=== PATIENT | female | born 1955 | race Caucasian/White ===

== ENCOUNTER → 2017-02-27 | Outpatient (CLI) | payer OTHER | END | disposition home or self-care (01) | LOC: CFH 14:33 | PROVIDERS: ATTEND Family Medicine | DX: Z12.31 Encounter for screening mammogram for malignant neoplasm of breast (principal); N63 Unspecified lump in breast; Z85.3 Personal history of malignant neoplasm of breast; Z98.890 Other specified postprocedural states | CPT/HCPCS: G0202 ==

== ENCOUNTER → 2018-07-24 | Outpatient (CLI) | payer OTHER | END | disposition home or self-care (01) | LOC: CFH 10:03 | PROVIDERS: ATTEND Family Medicine | DX: Z12.31 Encounter for screening mammogram for malignant neoplasm of breast (principal) | CPT/HCPCS: 77063; 77067 ==

== ENCOUNTER 2019-08-21 09:34 | Outpatient (CLI) | payer OTHER | END 2019-08-21 23:59 | disposition home or self-care (01) | LOC: CFH 09:34 | PROVIDERS: ATTEND Family Medicine | DX: Z12.31 Encounter for screening mammogram for malignant neoplasm of breast (principal); N63.31 Unspecified lump in axillary tail of the right breast | CPT/HCPCS: 77063; 77067 ==

== ENCOUNTER 2019-09-15 07:17 | Outpatient (CLI) | payer OTHER | END 2019-09-15 23:59 | disposition home or self-care (01) | LOC: CFH 07:17 | PROVIDERS: ATTEND Family Medicine | DX: N63.10 Unspecified lump in the right breast, unspecified quadrant (principal) | CPT/HCPCS: 76642; 77065; G0279 ==

== ENCOUNTER 2019-09-19 06:59 | Outpatient (CLI) | payer OTHER ==
[2019-09-19] MEDS ORDERED: LIDOCAINE 1%-EPI 1:100K, 30ML ONE (08:18)
[2019-09-19] MEDS ORDERED: LIDOCAINE 1%, 20ML ONE (08:18)
[2019-09-19] MEDS ORDERED: SODIUM BICARB 4.2%, 10ML SYRINGE ONE (08:18)
== END 2019-09-19 23:59 | disposition home or self-care (01) ==
LOC: CFH 06:59
PROVIDERS: ATTEND Family Medicine
DX: N63.10 Unspecified lump in the right breast, unspecified quadrant (principal); C77.3 Secondary and unspecified malignant neoplasm of axilla and upper limb lymph nodes; Z85.3 Personal history of malignant neoplasm of breast
CPT/HCPCS: 38505; 76942; 77065; 88305; 88341; 88342; 88360; J3490

== ENCOUNTER → 2019-11-04 | Outpatient (CLI) | payer OTHER ==
[~2019-11-04] MED LIST: NONE PER PT
[2019-11-04 14:04] LABS: BASOPHILS # (AUTO) 0.02 x10^3/uL (0-0.1); BASOPHILS % (AUTO) 0 % (0-1); EOSINOPHILS # (AUTO) 0.12 x10^3/uL (0-0.4); EOSINOPHILS % (AUTO) 2 % (1-7); LYMPHOCYTES # (AUTO) 1.47 x10^3/uL (1-3.4); LYMPHOCYTES % (AUTO) 29 % (22-44); MD NO; MEAN CORPUSCULAR HEMOGLOBIN 30.9 pg (27.0-34.8); MEAN CORPUSCULAR HGB CONC 33.2 g/dL (32.4-35.8); MEAN CORPUSCULAR VOLUME 93.1 fL (80-100); MEAN PLATELET VOLUME 8.4 fL (7.4-10.4); MONOCYTES # (AUTO) 0.41 x10^3/uL (0.2-0.8); MONOCYTES % (AUTO) 8 % (2-9); NEUTROPHILS # (AUTO) 3.04 x10^3/uL (1.8-6.8); NEUTROPHILS % (AUTO) 60 % (42-75); PLATELET COUNT 220 x10^3/uL (130-400); RED BLOOD COUNT 4.22 x10^6/uL (3.82-5.3); RED CELL DISTRIBUTION WIDTH 13.7 % (9.6-15.2)
== END | disposition home or self-care (01) ==
LOC: STAR 13:15
PROVIDERS: ATTEND Surgery
DX: Z01.818 Encounter for other preprocedural examination (principal); D05.11 Intraductal carcinoma in situ of right breast; C50.411 Malignant neoplasm of upper-outer quadrant of right female breast; C50.412 Malignant neoplasm of upper-outer quadrant of left female breast; Z85.828 Personal history of other malignant neoplasm of skin
CPT/HCPCS: 36415; 85025; 93005

== ENCOUNTER 2019-11-12 05:41 | Inpatient (IN) | payer OTHER ==
[2019-11-04 13:36] VITALS: BP 131/81
[~2019-11-12] VITALS: Ht 172.7 cm; Wt 68.8 kg
[2019-11-12] MEDS ORDERED: LACTATED RINGERS 1,000 ML IV SCH (06:37)
[2019-11-12] MEDS ORDERED: BUPIVACAINE/PF 0.5% ONE (06:40)
[2019-11-12] MEDS ORDERED: BACITRACIN 50,000 UNIT ONE (06:41)
[2019-11-12] MEDS ORDERED: CEFAZOLIN 1,000 MG ONE ×2 (06:41→13:49)
[2019-11-12] MEDS ORDERED: BUPIVACAINE/PF 0.25% ONE (06:41)
[2019-11-12] MEDS ORDERED: EPINEPHRINE 1 MG/ML, 1ML ONE (06:41)
[2019-11-12] MEDS ORDERED: GENTAMICIN 80 MG/2 ML ONE (06:41)
[2019-11-12] MEDS ORDERED: ISOSULFAN BLUE 10 MG/ML, 5ML IV ONE (06:41)
[2019-11-12] MEDS ORDERED: ROPIvacaine/PF 0.5%, 30 ML ONE (06:41)
[2019-11-12] MEDS ORDERED: ACETAMINOPHEN 500 MG TABLET ONE (07:10)
[2019-11-12] MEDS ORDERED: GABAPENTIN 300 MG CAPSULE ONE (07:11)
[2019-11-12] MEDS ORDERED: MIDAZOLAM 1 MG/ML, 2ML ONE (07:37)
[2019-11-12] MEDS ORDERED: FENTANYL PF 250 MCG/5ML ONE (07:38)
[2019-11-12] MEDS ORDERED: ONDANSETRON 2MG/ML, 2ML ONE ×2 (07:41→13:49)
[2019-11-12] MEDS ORDERED: hydrALAzine 20 MG/ML, 1ML IV PRN ×2 (08:30→16:30)
[2019-11-12] MEDS ORDERED: PROMETHAZINE 25 MG/ML, 1ML IV PRN (08:30)
[2019-11-12] MEDS ORDERED: HYDROmorphone 1 MG/ML, 1ML INJ IVPush PRN (08:30)
[2019-11-12] MEDS ORDERED: LABETALOL 5MG/ML, 20ML IV PRN (08:30)
[2019-11-12] MEDS ORDERED: KETOROLAC 30 MG/1 ML IV PRN (08:30)
[2019-11-12] MEDS ORDERED: ACETAMINOPHEN 325 MG TABLET PO PRN ×2 (08:30→16:30)
[2019-11-12] MEDS ORDERED: ALBUTEROL SULFATE 2.5 MG/3 ML NPPB PRN (08:30)
[2019-11-12] MEDS ORDERED: DIAZEPAM 5 MG/ML, 2ML IVPush PRN (08:30)
[2019-11-12] MEDS ORDERED: FENTANYL PF 100 MCG/2ML IV PRN (08:30)
[2019-11-12] MEDS ORDERED: OXYcodone 5 MG/5 ML ORAL.SOL UDC PO PRN (08:30)
[2019-11-12] MEDS ORDERED: MEPERIDINE/PF 25MG/0.5ML IVPush PRN (08:30)
[2019-11-12] MEDS ORDERED: NEOSTIGMINE 1 MG/ML, 10ML ONE (13:49)
[2019-11-12] MEDS ORDERED: GLYCOPYRROLATE 0.2MG/1ML, 5ML ONE (13:49)
[2019-11-12] MEDS ORDERED: SUCCINYLCHOLINE 20 MG/ML, 10ML ONE (13:49)
[2019-11-12] MEDS ORDERED: DEXAMETHASONE 4 MG/ML, 1ML ONE (13:49)
[2019-11-12] MEDS ORDERED: ROCURONIUM 10MG/ML,5ML ONE ×2 (13:49)
[2019-11-12] MEDS ORDERED: SUGAMMADEX 200 MG/2 ML IVPush ONE (13:49)
[2019-11-12] MEDS ORDERED: PROPOFOL 10 MG/ML, 20ML ONE (13:49)
[2019-11-12] MEDS ORDERED: FENTANYL PF 100 MCG/2ML ONE (14:53)
[2019-11-12] MEDS ORDERED: ACETAMINOPHEN 325 MG TABLET ONE (14:53)
[2019-11-12] MEDS ORDERED: ACETAMINOPHEN 650 MG/20.3 ML UDC ONE (14:53)
[2019-11-12] MEDS ORDERED: OXYcodone 5 MG/5 ML ORAL.SOL UDC ONE (14:53)
[2019-11-12] MEDS ORDERED: HYDROmorphone 2 MG/ML, 1ML IVPush PRN (16:30)
[2019-11-12] MEDS ORDERED: LACTATED RINGERS 500 ML IV PRN (16:30)
[2019-11-12] MEDS ORDERED: ONDANSETRON 2MG/ML, 2ML IV PRN (16:30)
[2019-11-12] MEDS ORDERED: SODIUM CHLORIDE 0.9%, 500ML IV PRN (16:30)
[2019-11-12] MEDS ORDERED: LORazepam 1MG TABLET PO PRN (16:30)
[2019-11-12] MEDS ORDERED: DIPHENHYDRAMINE 50 MG/ML, 1ML IV PRN (16:30)
[2019-11-12] MEDS ORDERED: D5%-LACTATED RINGERS 1,000 ML IV SCH (16:30)
[2019-11-12] MEDS ORDERED: DIPHENHYDRAMINE 25 MG CAPSULE PO PRN (16:30)
[2019-11-12] MEDS ORDERED: LORazepam 2 MG/ML, 1ML IV PRN (16:30)
[2019-11-12] MEDS ORDERED: ACETAMINOPHEN 650 MG SUPP PR PRN (16:30)
[2019-11-12] MEDS: CEFAZOLIN PMX 2GM/50ML 50 ML IVPB SCH (18:36)
[2019-11-12 19:50] VITALS: BP 109/64
[2019-11-12 23:43] VITALS: BP 100/61
[2019-11-13] MEDS: CEFAZOLIN PMX 2GM/50ML 50 ML IVPB SCH (02:10)
[2019-11-13 03:28] VITALS: BP 106/67
[2019-11-13 07:50] VITALS: BP 92/55
[2019-11-13 09:17] VITALS: BP 99/62
[2019-11-13] MEDS ORDERED: HEPARIN 5,000 UNITS/ML, 1ML SQ SCH (11:30)
== END 2019-11-13 11:11 | disposition home or self-care (01) | DRG 581 ==
LOC: ORIP 05:41 → EDSTATUS 07:30 → 4NE 16:00 → DCLOUNGE 11-13 10:50
PROVIDERS: ADMIT Surgery; ATTEND Surgery
PROC: 0KXF0Z5 Transfer Right Trunk Muscle, Latissimus Dorsi Myocutaneous Flap, Open Approach (ICD-10-PCS; 2019-11-12)
PROC: 0KXG0Z5 Transfer Left Trunk Muscle, Latissimus Dorsi Myocutaneous Flap, Open Approach (ICD-10-PCS; 2019-11-12)
PROC: 0HHT0NZ Insertion of Tissue Expander into Right Breast, Open Approach (ICD-10-PCS; 2019-11-12)
PROC: 07B50ZZ Excision of Right Axillary Lymphatic, Open Approach (ICD-10-PCS; principal; 2019-11-12 07:30)
PROC: 0HTV0ZZ Resection of Bilateral Breast, Open Approach (ICD-10-PCS; 2019-11-12 07:30)
DX: C50.911 Malignant neoplasm of unspecified site of right female breast (principal); C50.912 Malignant neoplasm of unspecified site of left female breast; Z92.3 Personal history of irradiation; Z92.21 Personal history of antineoplastic chemotherapy; Z17.0 Estrogen receptor positive status [ER+]
CPT/HCPCS: J7121; S0020; 88305; 88307; C1729; G0378; J0171; J0690; J1100; J2250; J2405; J2704; J2710; J2795; J3010; J3490; C1789; J0330; J1580; J7120

== ENCOUNTER 2019-11-27 13:53 | Day surgery (SDC) | payer OTHER ==
[~2019-11-27] VITALS: Ht 172.7 cm; Wt 66.9 kg
[2019-11-27] MEDS ORDERED: LACTATED RINGERS 1,000 ML IV SCH (14:13)
[2019-11-27 14:19] VITALS: BP 115/73
[2019-11-27] MEDS ORDERED: SULF1TAB24 PO (14:26)
[2019-11-27] MEDS ORDERED: MIDAZOLAM 1 MG/ML, 2ML ONE (16:01)
[2019-11-27] MEDS ORDERED: FENTANYL PF 250 MCG/5ML ONE (16:01)
[2019-11-27] MEDS ORDERED: DEXAMETHASONE 4 MG/ML, 1ML ONE ×2 (16:02→16:34)
[2019-11-27] MEDS ORDERED: PROPOFOL 10 MG/ML, 20ML ONE (16:02)
[2019-11-27] MEDS ORDERED: ROCURONIUM 10MG/ML,5ML ONE (16:03)
[2019-11-27] MEDS ORDERED: CEFAZOLIN 1,000 MG ONE ×2 (16:30→16:34)
[2019-11-27] MEDS ORDERED: GENTAMICIN 80 MG/2 ML ONE (16:30)
[2019-11-27] MEDS ORDERED: BACITRACIN 50,000 UNIT ONE (16:30)
[2019-11-27] MEDS ORDERED: EPINEPHRINE 1 MG/ML, 1ML ONE (16:34)
== END 2019-11-27 18:50 | disposition home or self-care (01) ==
LOC: OR 13:53
PROVIDERS: ATTEND Plastic Surgery
DX: L76.82 Other postprocedural complications of skin and subcutaneous tissue (principal); E03.9 Hypothyroidism, unspecified; Z85.3 Personal history of malignant neoplasm of breast; Z90.13 Acquired absence of bilateral breasts and nipples; Z92.3 Personal history of irradiation; Z85.828 Personal history of other malignant neoplasm of skin; Z98.890 Other specified postprocedural states
CPT/HCPCS: 14001; 14301; J0171; J0690; J1100; J1580; J2250; J2704; J3010; J7120

== ENCOUNTER → 2019-12-01 | Outpatient (CLI) | payer OTHER ==
[~2019-12-01] MED LIST changes: +SULF1TAB24 PO
== END | disposition home or self-care (01) ==
LOC: WOUND 12:52
PROVIDERS: ATTEND Internal Medicine
DX: T81.89XA Other complications of procedures, not elsewhere classified, initial encounter (principal); L59.8 Other specified disorders of the skin and subcutaneous tissue related to radiation; Z85.3 Personal history of malignant neoplasm of breast; Z85.828 Personal history of other malignant neoplasm of skin; Y83.8 Other surgical procedures as the cause of abnormal reaction of the patient, or of later complication, without mention of misadventure at the time of the procedure; Y84.2 Radiological procedure and radiotherapy as the cause of abnormal reaction of the patient, or of later complication, without mention of misadventure at the time of the procedure; Y92.89 Other specified places as the place of occurrence of the external cause
CPT/HCPCS: 11042; 97605; 99215

== ENCOUNTER → 2019-12-01 | Outpatient (CLI) | payer OTHER | END | disposition home or self-care (01) | LOC: CFH 14:35 | PROVIDERS: ATTEND Internal Medicine | DX: T81.32XA Disruption of internal operation (surgical) wound, not elsewhere classified, initial encounter (principal); X58.XXXA Exposure to other specified factors, initial encounter; Y93.89 Activity, other specified; Y92.89 Other specified places as the place of occurrence of the external cause; Y99.8 Other external cause status | CPT/HCPCS: 71046 ==

== ENCOUNTER → 2019-12-03 | Outpatient (CLI) | payer OTHER | END | disposition home or self-care (01) | LOC: WOUND 10:56 | PROVIDERS: ATTEND Internal Medicine | DX: T81.89XD Other complications of procedures, not elsewhere classified, subsequent encounter (principal); L59.8 Other specified disorders of the skin and subcutaneous tissue related to radiation; S21.109A Unspecified open wound of unspecified front wall of thorax without penetration into thoracic cavity, initial encounter; E03.9 Hypothyroidism, unspecified; Z85.3 Personal history of malignant neoplasm of breast; Z85.828 Personal history of other malignant neoplasm of skin; Z90.13 Acquired absence of bilateral breasts and nipples; Z98.890 Other specified postprocedural states; Z92.3 Personal history of irradiation; Z92.21 Personal history of antineoplastic chemotherapy; X58.XXXA Exposure to other specified factors, initial encounter; Y93.89 Activity, other specified; Y92.89 Other specified places as the place of occurrence of the external cause; Y99.8 Other external cause status; Y83.8 Other surgical procedures as the cause of abnormal reaction of the patient, or of later complication, without mention of misadventure at the time of the procedure | CPT/HCPCS: 97605 ==

== ENCOUNTER → 2019-12-05 | Outpatient (CLI) | payer OTHER | END | disposition home or self-care (01) | LOC: WOUND 11:01 | PROVIDERS: ATTEND Family Medicine | DX: T81.89XD Other complications of procedures, not elsewhere classified, subsequent encounter (principal); L59.8 Other specified disorders of the skin and subcutaneous tissue related to radiation; S21.109D Unspecified open wound of unspecified front wall of thorax without penetration into thoracic cavity, subsequent encounter; E03.9 Hypothyroidism, unspecified; Z98.890 Other specified postprocedural states; Z92.21 Personal history of antineoplastic chemotherapy; Z92.3 Personal history of irradiation; Z85.3 Personal history of malignant neoplasm of breast; Z90.13 Acquired absence of bilateral breasts and nipples; Z85.828 Personal history of other malignant neoplasm of skin; X58.XXXD Exposure to other specified factors, subsequent encounter; Y83.8 Other surgical procedures as the cause of abnormal reaction of the patient, or of later complication, without mention of misadventure at the time of the procedure | CPT/HCPCS: 97605 ==

== ENCOUNTER → 2019-12-08 | Outpatient (CLI) | payer OTHER | END | disposition home or self-care (01) | LOC: WOUND 09:43 | PROVIDERS: ATTEND Internal Medicine | DX: T81.89XD Other complications of procedures, not elsewhere classified, subsequent encounter (principal); L59.8 Other specified disorders of the skin and subcutaneous tissue related to radiation; E03.9 Hypothyroidism, unspecified; Z90.13 Acquired absence of bilateral breasts and nipples; Z98.890 Other specified postprocedural states; Z92.21 Personal history of antineoplastic chemotherapy; Z92.3 Personal history of irradiation; Z85.3 Personal history of malignant neoplasm of breast; Z85.828 Personal history of other malignant neoplasm of skin; Y83.8 Other surgical procedures as the cause of abnormal reaction of the patient, or of later complication, without mention of misadventure at the time of the procedure | CPT/HCPCS: 11042; 97605 ==

== ENCOUNTER 2019-12-10 09:17 | Outpatient (CLI) | payer OTHER | END 2019-12-10 23:59 | disposition home or self-care (01) | LOC: WOUND 09:17 | PROVIDERS: ATTEND Internal Medicine | DX: T81.89XD Other complications of procedures, not elsewhere classified, subsequent encounter (principal); L59.8 Other specified disorders of the skin and subcutaneous tissue related to radiation; E03.9 Hypothyroidism, unspecified; Z90.13 Acquired absence of bilateral breasts and nipples; Z92.21 Personal history of antineoplastic chemotherapy; Z92.3 Personal history of irradiation; Z85.3 Personal history of malignant neoplasm of breast; Z85.828 Personal history of other malignant neoplasm of skin; Y83.8 Other surgical procedures as the cause of abnormal reaction of the patient, or of later complication, without mention of misadventure at the time of the procedure | CPT/HCPCS: 97605 ==

== ENCOUNTER 2019-12-12 09:15 | Outpatient (CLI) | payer OTHER | END 2019-12-12 23:59 | disposition home or self-care (01) | LOC: WOUND 09:15 | PROVIDERS: ATTEND Family Medicine | DX: Z02.9 Encounter for administrative examinations, unspecified (principal) ==

== ENCOUNTER 2019-12-15 09:00 | Outpatient (CLI) | payer OTHER | END 2019-12-15 23:59 | disposition home or self-care (01) | LOC: WOUND 09:00 | PROVIDERS: ATTEND Internal Medicine | DX: T81.89XD Other complications of procedures, not elsewhere classified, subsequent encounter (principal); L59.8 Other specified disorders of the skin and subcutaneous tissue related to radiation; E03.9 Hypothyroidism, unspecified; Z90.13 Acquired absence of bilateral breasts and nipples; Z92.21 Personal history of antineoplastic chemotherapy; Z92.3 Personal history of irradiation; Z85.3 Personal history of malignant neoplasm of breast; Z85.828 Personal history of other malignant neoplasm of skin; Y83.8 Other surgical procedures as the cause of abnormal reaction of the patient, or of later complication, without mention of misadventure at the time of the procedure; Y84.2 Radiological procedure and radiotherapy as the cause of abnormal reaction of the patient, or of later complication, without mention of misadventure at the time of the procedure | CPT/HCPCS: 97597 ==

== ENCOUNTER → 2019-12-17 | Outpatient (CLI) | payer OTHER | END | disposition home or self-care (01) | LOC: WOUND 09:26 | PROVIDERS: ATTEND Internal Medicine | DX: T81.89XD Other complications of procedures, not elsewhere classified, subsequent encounter (principal); L59.8 Other specified disorders of the skin and subcutaneous tissue related to radiation; E03.9 Hypothyroidism, unspecified; Z85.3 Personal history of malignant neoplasm of breast; Z92.21 Personal history of antineoplastic chemotherapy; Z92.3 Personal history of irradiation; Z90.13 Acquired absence of bilateral breasts and nipples; Z85.828 Personal history of other malignant neoplasm of skin; Z98.890 Other specified postprocedural states; Y83.8 Other surgical procedures as the cause of abnormal reaction of the patient, or of later complication, without mention of misadventure at the time of the procedure | CPT/HCPCS: 97605 ==

== ENCOUNTER → 2019-12-19 | Outpatient (CLI) | payer OTHER | END | disposition home or self-care (01) | LOC: WOUND 09:46 | PROVIDERS: ATTEND Family Medicine | DX: T81.89XD Other complications of procedures, not elsewhere classified, subsequent encounter (principal); L59.8 Other specified disorders of the skin and subcutaneous tissue related to radiation; E03.9 Hypothyroidism, unspecified; Z85.3 Personal history of malignant neoplasm of breast; Z92.21 Personal history of antineoplastic chemotherapy; Z92.3 Personal history of irradiation; Z90.13 Acquired absence of bilateral breasts and nipples; Z85.828 Personal history of other malignant neoplasm of skin; Z98.890 Other specified postprocedural states; Y83.8 Other surgical procedures as the cause of abnormal reaction of the patient, or of later complication, without mention of misadventure at the time of the procedure | CPT/HCPCS: 97605 ==

== ENCOUNTER → 2019-12-22 | Outpatient (CLI) | payer OTHER | END | disposition home or self-care (01) | LOC: WOUND 09:02 | PROVIDERS: ATTEND Surgery | DX: T81.89XD Other complications of procedures, not elsewhere classified, subsequent encounter (principal); L59.8 Other specified disorders of the skin and subcutaneous tissue related to radiation; E03.9 Hypothyroidism, unspecified; Z85.3 Personal history of malignant neoplasm of breast; Z92.21 Personal history of antineoplastic chemotherapy; Z92.3 Personal history of irradiation; Z90.13 Acquired absence of bilateral breasts and nipples; Z85.828 Personal history of other malignant neoplasm of skin; Z98.890 Other specified postprocedural states; Y83.8 Other surgical procedures as the cause of abnormal reaction of the patient, or of later complication, without mention of misadventure at the time of the procedure | CPT/HCPCS: 97605 ==

== ENCOUNTER → 2019-12-24 | Outpatient (CLI) | payer OTHER | END | disposition home or self-care (01) | LOC: WOUND 09:06 | PROVIDERS: ATTEND Internal Medicine | DX: T81.89XD Other complications of procedures, not elsewhere classified, subsequent encounter (principal); L59.8 Other specified disorders of the skin and subcutaneous tissue related to radiation; E03.9 Hypothyroidism, unspecified; Z85.3 Personal history of malignant neoplasm of breast; Z92.21 Personal history of antineoplastic chemotherapy; Z92.3 Personal history of irradiation; Z90.13 Acquired absence of bilateral breasts and nipples; Z85.828 Personal history of other malignant neoplasm of skin; Z98.890 Other specified postprocedural states; Y83.8 Other surgical procedures as the cause of abnormal reaction of the patient, or of later complication, without mention of misadventure at the time of the procedure | CPT/HCPCS: 97597 ==

== ENCOUNTER 2019-12-26 13:16 | Outpatient (CLI) | payer OTHER | END 2019-12-26 23:59 | disposition home or self-care (01) | LOC: WOUND 13:16 | PROVIDERS: ATTEND Family Medicine | DX: T81.31XD Disruption of external operation (surgical) wound, not elsewhere classified, subsequent encounter (principal); T86.821 Skin graft (allograft) (autograft) failure; S21.109D Unspecified open wound of unspecified front wall of thorax without penetration into thoracic cavity, subsequent encounter; L59.8 Other specified disorders of the skin and subcutaneous tissue related to radiation; E03.9 Hypothyroidism, unspecified; Z85.3 Personal history of malignant neoplasm of breast; Y83.8 Other surgical procedures as the cause of abnormal reaction of the patient, or of later complication, without mention of misadventure at the time of the procedure; Y83.2 Surgical operation with anastomosis, bypass or graft as the cause of abnormal reaction of the patient, or of later complication, without mention of misadventure at the time of the procedure; X58.XXXD Exposure to other specified factors, subsequent encounter; Y84.2 Radiological procedure and radiotherapy as the cause of abnormal reaction of the patient, or of later complication, without mention of misadventure at the time of the procedure | CPT/HCPCS: 97605 ==

== ENCOUNTER → 2019-12-29 | Outpatient (CLI) | payer OTHER | END | disposition home or self-care (01) | LOC: WOUND 09:36 | PROVIDERS: ATTEND Internal Medicine | DX: T81.89XD Other complications of procedures, not elsewhere classified, subsequent encounter (principal); T86.821 Skin graft (allograft) (autograft) failure; S21.109D Unspecified open wound of unspecified front wall of thorax without penetration into thoracic cavity, subsequent encounter; L59.8 Other specified disorders of the skin and subcutaneous tissue related to radiation; E03.9 Hypothyroidism, unspecified; Z85.828 Personal history of other malignant neoplasm of skin; Z85.3 Personal history of malignant neoplasm of breast; X58.XXXD Exposure to other specified factors, subsequent encounter; Y83.8 Other surgical procedures as the cause of abnormal reaction of the patient, or of later complication, without mention of misadventure at the time of the procedure; Y83.2 Surgical operation with anastomosis, bypass or graft as the cause of abnormal reaction of the patient, or of later complication, without mention of misadventure at the time of the procedure; Y84.2 Radiological procedure and radiotherapy as the cause of abnormal reaction of the patient, or of later complication, without mention of misadventure at the time of the procedure | CPT/HCPCS: 97605 ==

== ENCOUNTER → 2019-12-31 | Outpatient (CLI) | payer OTHER | END | disposition home or self-care (01) | LOC: WOUND 09:19 | PROVIDERS: ATTEND Internal Medicine | DX: T86.821 Skin graft (allograft) (autograft) failure (principal); T81.31XD Disruption of external operation (surgical) wound, not elsewhere classified, subsequent encounter; S21.109D Unspecified open wound of unspecified front wall of thorax without penetration into thoracic cavity, subsequent encounter; L59.8 Other specified disorders of the skin and subcutaneous tissue related to radiation; E03.9 Hypothyroidism, unspecified; Z85.3 Personal history of malignant neoplasm of breast; X58.XXXD Exposure to other specified factors, subsequent encounter; Y83.2 Surgical operation with anastomosis, bypass or graft as the cause of abnormal reaction of the patient, or of later complication, without mention of misadventure at the time of the procedure; Y83.8 Other surgical procedures as the cause of abnormal reaction of the patient, or of later complication, without mention of misadventure at the time of the procedure; Y84.2 Radiological procedure and radiotherapy as the cause of abnormal reaction of the patient, or of later complication, without mention of misadventure at the time of the procedure | CPT/HCPCS: 97597 ==

== ENCOUNTER 2020-01-02 09:27 | Outpatient (CLI) | payer OTHER | END 2020-01-02 23:59 | disposition home or self-care (01) | LOC: WOUND 09:27 | PROVIDERS: ATTEND Family Medicine | DX: T86.821 Skin graft (allograft) (autograft) failure (principal); T81.31XD Disruption of external operation (surgical) wound, not elsewhere classified, subsequent encounter; S21.109D Unspecified open wound of unspecified front wall of thorax without penetration into thoracic cavity, subsequent encounter; L59.8 Other specified disorders of the skin and subcutaneous tissue related to radiation; E03.9 Hypothyroidism, unspecified; Z85.3 Personal history of malignant neoplasm of breast; X58.XXXD Exposure to other specified factors, subsequent encounter; Y83.2 Surgical operation with anastomosis, bypass or graft as the cause of abnormal reaction of the patient, or of later complication, without mention of misadventure at the time of the procedure; Y83.8 Other surgical procedures as the cause of abnormal reaction of the patient, or of later complication, without mention of misadventure at the time of the procedure | CPT/HCPCS: 97605 ==

== ENCOUNTER → 2020-01-05 | Outpatient (CLI) | payer OTHER | END | disposition home or self-care (01) | LOC: WOUND 09:18 | PROVIDERS: ATTEND Internal Medicine | DX: T81.89XD Other complications of procedures, not elsewhere classified, subsequent encounter (principal); L59.8 Other specified disorders of the skin and subcutaneous tissue related to radiation; E03.9 Hypothyroidism, unspecified; Z85.828 Personal history of other malignant neoplasm of skin; Z85.3 Personal history of malignant neoplasm of breast; Z98.890 Other specified postprocedural states; Z92.21 Personal history of antineoplastic chemotherapy; Z92.3 Personal history of irradiation; Y83.8 Other surgical procedures as the cause of abnormal reaction of the patient, or of later complication, without mention of misadventure at the time of the procedure | CPT/HCPCS: 99212 ==

== ENCOUNTER 2020-01-21 08:19 | Outpatient (CLI) | payer OTHER | END 2020-01-21 23:59 | disposition home or self-care (01) | LOC: WOUND 08:19 | PROVIDERS: ATTEND Internal Medicine | DX: T86.821 Skin graft (allograft) (autograft) failure (principal); L59.8 Other specified disorders of the skin and subcutaneous tissue related to radiation; E03.9 Hypothyroidism, unspecified; Z85.828 Personal history of other malignant neoplasm of skin; Z85.3 Personal history of malignant neoplasm of breast; Z92.21 Personal history of antineoplastic chemotherapy; Z92.3 Personal history of irradiation; Y83.2 Surgical operation with anastomosis, bypass or graft as the cause of abnormal reaction of the patient, or of later complication, without mention of misadventure at the time of the procedure | CPT/HCPCS: 97597 ==

== ENCOUNTER 2020-01-28 08:52 | Outpatient (CLI) | payer OTHER | END 2020-01-28 23:59 | disposition home or self-care (01) | LOC: WOUND 08:52 | PROVIDERS: ATTEND Internal Medicine | DX: T86.821 Skin graft (allograft) (autograft) failure (principal); T81.89XD Other complications of procedures, not elsewhere classified, subsequent encounter; L59.8 Other specified disorders of the skin and subcutaneous tissue related to radiation; E03.9 Hypothyroidism, unspecified; Z85.828 Personal history of other malignant neoplasm of skin; Z85.3 Personal history of malignant neoplasm of breast; Z92.21 Personal history of antineoplastic chemotherapy; Z92.3 Personal history of irradiation; Y83.2 Surgical operation with anastomosis, bypass or graft as the cause of abnormal reaction of the patient, or of later complication, without mention of misadventure at the time of the procedure; Y83.8 Other surgical procedures as the cause of abnormal reaction of the patient, or of later complication, without mention of misadventure at the time of the procedure | CPT/HCPCS: 97597 ==

== ENCOUNTER 2020-02-02 08:12 | Outpatient (CLI) | payer OTHER ==
[2020-02-12] MEDS ORDERED: NONE PER PT (09:35)
== END 2020-02-02 23:59 | disposition home or self-care (01) ==
LOC: WOUND 08:12
PROVIDERS: ATTEND Internal Medicine
DX: T86.821 Skin graft (allograft) (autograft) failure (principal); T81.89XD Other complications of procedures, not elsewhere classified, subsequent encounter; S21.109D Unspecified open wound of unspecified front wall of thorax without penetration into thoracic cavity, subsequent encounter; L59.8 Other specified disorders of the skin and subcutaneous tissue related to radiation; E03.9 Hypothyroidism, unspecified; Z85.828 Personal history of other malignant neoplasm of skin; Z85.3 Personal history of malignant neoplasm of breast; Z92.21 Personal history of antineoplastic chemotherapy; Z92.3 Personal history of irradiation; Z79.899 Other long term (current) drug therapy; X58.XXXD Exposure to other specified factors, subsequent encounter; Y83.2 Surgical operation with anastomosis, bypass or graft as the cause of abnormal reaction of the patient, or of later complication, without mention of misadventure at the time of the procedure; Y84.2 Radiological procedure and radiotherapy as the cause of abnormal reaction of the patient, or of later complication, without mention of misadventure at the time of the procedure; Y83.8 Other surgical procedures as the cause of abnormal reaction of the patient, or of later complication, without mention of misadventure at the time of the procedure
CPT/HCPCS: 97597

== ENCOUNTER → 2020-02-09 | Outpatient (CLI) | payer OTHER | END | disposition home or self-care (01) | LOC: WOUND 10:49 | PROVIDERS: ATTEND Internal Medicine | DX: T86.821 Skin graft (allograft) (autograft) failure (principal); T81.89XD Other complications of procedures, not elsewhere classified, subsequent encounter; S21.109D Unspecified open wound of unspecified front wall of thorax without penetration into thoracic cavity, subsequent encounter; L59.8 Other specified disorders of the skin and subcutaneous tissue related to radiation; E03.9 Hypothyroidism, unspecified; Z85.828 Personal history of other malignant neoplasm of skin; Z85.3 Personal history of malignant neoplasm of breast; Z92.21 Personal history of antineoplastic chemotherapy; Z92.3 Personal history of irradiation; Y83.2 Surgical operation with anastomosis, bypass or graft as the cause of abnormal reaction of the patient, or of later complication, without mention of misadventure at the time of the procedure; Y84.2 Radiological procedure and radiotherapy as the cause of abnormal reaction of the patient, or of later complication, without mention of misadventure at the time of the procedure; Y83.8 Other surgical procedures as the cause of abnormal reaction of the patient, or of later complication, without mention of misadventure at the time of the procedure | CPT/HCPCS: 97597 ==

== ENCOUNTER → 2020-02-12 | Outpatient (CLI) | payer OTHER ==
[2020-02-12 09:58] LABS: BASOPHILS # (AUTO) 0.02 x10^3/uL (0-0.1); BASOPHILS % (AUTO) 1 % (0-1); EOSINOPHILS # (AUTO) 0.18 x10^3/uL (0-0.4); EOSINOPHILS % (AUTO) 5 % (1-7); LYMPHOCYTES # (AUTO) 1.04 x10^3/uL (1-3.4); LYMPHOCYTES % (AUTO) 30 % (22-44); MD NO; MEAN CORPUSCULAR HEMOGLOBIN 30.4 pg (27.0-34.8); MEAN CORPUSCULAR HGB CONC 33.2 g/dL (32.4-35.8); MEAN CORPUSCULAR VOLUME 91.6 fL (80-100); MEAN PLATELET VOLUME 8.5 fL (7.4-10.4); MONOCYTES # (AUTO) 0.35 x10^3/uL (0.2-0.8); MONOCYTES % (AUTO) 10 % (2-9); NEUTROPHILS # (AUTO) 1.88 x10^3/uL (1.8-6.8); NEUTROPHILS % (AUTO) 54 % (42-75); PLATELET COUNT 235 x10^3/uL (130-400); RED BLOOD COUNT 4.01 x10^6/uL (3.82-5.3); RED CELL DISTRIBUTION WIDTH 13.9 % (9.6-15.2)
== END | disposition home or self-care (01) ==
LOC: STAR 09:09
PROVIDERS: ATTEND Dermatology
DX: Z01.818 Encounter for other preprocedural examination (principal); C50.411 Malignant neoplasm of upper-outer quadrant of right female breast; C50.412 Malignant neoplasm of upper-outer quadrant of left female breast; R94.31 Abnormal electrocardiogram [ECG] [EKG]
CPT/HCPCS: 36415; 85025; 93005

== ENCOUNTER 2020-02-17 07:44 | Day surgery (SDC) | payer OTHER ==
[~2020-02-17] VITALS: Ht 172.7 cm; Wt 68.8 kg
[2020-02-17 08:05] VITALS: BP 126/81
[2020-02-17] MEDS ORDERED: CHLORHEXIDINE 15 ML UDC ONE (08:10)
[2020-02-17] MEDS ORDERED: CHLORHEXIDINE 15 ML UDC MM ONE (08:30)
[2020-02-17] MEDS ORDERED: FENTANYL PF 250 MCG/5ML ONE (08:32)
[2020-02-17] MEDS ORDERED: MIDAZOLAM 1 MG/ML, 2ML ONE (08:32)
[2020-02-17] MEDS ORDERED: LACTATED RINGERS 1,000 ML IV SCH (09:00)
[2020-02-17] MEDS ORDERED: BUPIVACAINE/PF-EPI 0.5% 1:200K ONE (09:13)
[2020-02-17] MEDS ORDERED: CEFAZOLIN 1,000 MG ONE ×2 (09:13→10:31)
[2020-02-17] MEDS ORDERED: GENTAMICIN 80 MG/2 ML ONE (09:13)
[2020-02-17] MEDS ORDERED: BACITRACIN 50,000 UNIT ONE (09:14)
[2020-02-17] MEDS ORDERED: LIDOCAINE-MPF 2% ,5ML ONE (09:14)
[2020-02-17] MEDS ORDERED: SODIUM BICARBONATE 1 MEQ/ML, 50ML VIAL ONE (09:14)
[2020-02-17] MEDS ORDERED: EPINEPHRINE 1 MG/ML, 1ML ONE (09:14)
[2020-02-17] MEDS ORDERED: ACETAMINOPHEN 500 MG TABLET ONE (09:15)
[2020-02-17] MEDS ORDERED: GABAPENTIN 300 MG CAPSULE ONE (09:15)
[2020-02-17] MEDS ORDERED: PROMETHAZINE 25 MG/ML, 1ML IV PRN (10:00)
[2020-02-17] MEDS ORDERED: MEPERIDINE/PF 25MG/0.5ML IVPush PRN (10:00)
[2020-02-17] MEDS ORDERED: HYDROmorphone 1 MG/ML, 1ML INJ IVPush PRN (10:00)
[2020-02-17] MEDS ORDERED: ALBUTEROL SULFATE 2.5 MG/3 ML NPPB PRN (10:00)
[2020-02-17] MEDS ORDERED: LABETALOL 5MG/ML, 20ML IV PRN (10:00)
[2020-02-17] MEDS ORDERED: FENTANYL PF 100 MCG/2ML IV PRN (10:00)
[2020-02-17] MEDS ORDERED: OXYcodone 5 MG/5 ML ORAL.SOL UDC PO PRN (10:00)
[2020-02-17] MEDS ORDERED: DIAZEPAM 5 MG/ML, 2ML IVPush PRN (10:00)
[2020-02-17] MEDS ORDERED: hydrALAzine 20 MG/ML, 1ML IV PRN (10:00)
[2020-02-17] MEDS ORDERED: SUCCINYLCHOLINE 20 MG/ML, 10ML ONE (10:31)
[2020-02-17] MEDS ORDERED: NEOSTIGMINE 1 MG/ML, 10ML ONE (10:31)
[2020-02-17] MEDS ORDERED: GLYCOPYRROLATE 0.2MG/1ML, 5ML ONE (10:31)
[2020-02-17] MEDS ORDERED: ROCURONIUM 10MG/ML,5ML ONE (10:31)
[2020-02-17] MEDS ORDERED: PROPOFOL 10 MG/ML, 20ML ONE ×2 (10:31→10:32)
[2020-02-17] MEDS ORDERED: ONDANSETRON 2MG/ML, 2ML ONE (10:31)
[2020-02-17] MEDS ORDERED: DEXAMETHASONE 4 MG/ML, 1ML ONE (10:31)
[2020-02-17] MEDS ORDERED: OXYcodone 5 MG/5 ML ORAL.SOL UDC ONE (11:33)
[2020-02-17] MEDS ORDERED: FENTANYL PF 100 MCG/2ML ONE (11:33)
== END 2020-02-17 16:00 | disposition home or self-care (01) ==
LOC: OUT 07:44
PROVIDERS: ATTEND Plastic Surgery
DX: N65.1 Disproportion of reconstructed breast (principal); Z79.899 Other long term (current) drug therapy; Z85.3 Personal history of malignant neoplasm of breast; Z90.13 Acquired absence of bilateral breasts and nipples; Z92.3 Personal history of irradiation; Z85.828 Personal history of other malignant neoplasm of skin; Z98.890 Other specified postprocedural states
CPT/HCPCS: 14001; 19342; C1729; C1789; J0171; J0330; J0690; J1100; J1580; J2250; J2405; J2704; J3010; J7120; J2710

== ENCOUNTER → 2020-02-23 | Outpatient (CLI) | payer OTHER | END | disposition home or self-care (01) | LOC: WOUND 10:58 | PROVIDERS: ATTEND Internal Medicine | DX: T86.821 Skin graft (allograft) (autograft) failure (principal); L59.8 Other specified disorders of the skin and subcutaneous tissue related to radiation; E03.9 Hypothyroidism, unspecified; Z85.828 Personal history of other malignant neoplasm of skin; Z85.3 Personal history of malignant neoplasm of breast; Z92.21 Personal history of antineoplastic chemotherapy; Z92.3 Personal history of irradiation; Z79.899 Other long term (current) drug therapy; Y83.2 Surgical operation with anastomosis, bypass or graft as the cause of abnormal reaction of the patient, or of later complication, without mention of misadventure at the time of the procedure; Y84.2 Radiological procedure and radiotherapy as the cause of abnormal reaction of the patient, or of later complication, without mention of misadventure at the time of the procedure | CPT/HCPCS: 99212 ==

== ENCOUNTER 2020-12-03 13:53 | Outpatient (CLI) | payer OTHER | END 2020-12-03 23:59 | disposition home or self-care (01) | LOC: CFH 13:53 | PROVIDERS: ATTEND Surgery | DX: Z85.3 Personal history of malignant neoplasm of breast (principal) | CPT/HCPCS: 76642 ==